=== PATIENT | female | born 1990 | race Caucasian/White ===

== ENCOUNTER 2016-12-15 14:15 | Emergency (ER) | payer OTHER | END 2016-12-15 17:38 | disposition home or self-care (01) | LOC: ER 14:15 | DX: R11.2 Nausea with vomiting, unspecified (principal); R19.7 Diarrhea, unspecified; F17.210 Nicotine dependence, cigarettes, uncomplicated | CPT/HCPCS: 36415; 96361; 96374; 96375; J2550 ==

== ENCOUNTER 2017-02-01 01:33 | Emergency (ER) | payer OTHER | END 2017-02-01 03:17 | disposition home or self-care (01) | LOC: ER 01:33 | DX: K27.9 Peptic ulcer, site unspecified, unspecified as acute or chronic, without hemorrhage or perforation (principal); F17.210 Nicotine dependence, cigarettes, uncomplicated | CPT/HCPCS: 36415 ==